=== PATIENT | female | born 1965 | race Caucasian/White ===

== ENCOUNTER → 2020-09-09 | Outpatient (CLI) | payer BC ==
--- NOTE | 2020-09-09 15:44 | CTL ---
EXAMINATION TYPE: CT Low Dose Lung DATE OF EXAM ORDERED: 09/09/2020 HISTORY: Personal history tobacco use. Lung cancer screening CT DLP: 52.[address] CTDI: 1.5 mGy Automated exposure control for dose reduction was used. SCREENING VISIT: 1 COMPARISON: None TECHNIQUE: Low dose computed tomography scan was performed through the chest at 1 mm thick sections a nd reconstructed images in the coronal plane at [address] DIAGNOSTIC QUALITY: Satisfactory FINDINGS: LUNG NODULES: Present, detailed below: Axial image #186 shows a 4.6 mm indeterminate soft tissue nodu le. LUNGS: COPD: Severity: None Fibrosis: Severity: Mild Lymph nodes: None Other findings: There is probable secretions present within the esophagus, difficult to exclude a muc osal abnormality, minimal apical pleural thickening posteriorly and bilaterally RIGHT PLEURAL SPACE: Effusion: None Calcification: None Thickening: None Pneumothorax: None LEFT PLEURAL SPACE: Effusion: None Calcification: None Thickening: None Pneumothorax: None HEART: Heart Size: Small Coronary calcification: Mild Pericardial effusion: None OTHER FINDINGS: Upper abdomen: Unremarkable Bony thorax: Within normal limits Supraclavicular region: No evident adenopathy Other: IMPRESSION: Benign CT LUNG RAD AND CT CHEST RECOMMENDATION: Lung-Rad 2 Benign Appearance or Behavior: Continue annual sc reening with LDCT in 12 months. S Modifier (other clinically significant findings):
== END | disposition home or self-care (01) ==
LOC: RADCTMAIN 11:38
PROVIDERS: ATTEND Family Medicine
DX: Z12.2 Encounter for screening for malignant neoplasm of respiratory organs (principal); F17.210 Nicotine dependence, cigarettes, uncomplicated
CPT/HCPCS: 71271

== ENCOUNTER → 2022-06-02 | Outpatient (CLI) | payer BC ==
--- NOTE | 2022-06-02 15:05 | CTL ---
EXAMINATION TYPE: CT Low Dose Lung DATE OF EXAM ORDERED: 06/02/2022 HISTORY: Long-term tobacco use. Lung cancer screening CT DLP: 58.[address] CTDI: 1.9 mGy Automated exposure control for dose reduction was used. SCREENING VISIT: First step to baseline COMPARISON: Prior study September 09, 2020 TECHNIQUE: Low dose computed tomography scan was performed through the chest at 1 mm thick sections a nd reconstructed images in multiple planes at 1 mm and [address] DIAGNOSTIC QUALITY: Satisfactory FINDINGS: LUNG NODULES: Present, detailed below: Stable 4 to 5 mm lingular nodule on axial image 140. Adjacent tiny nodularity is seen on current study. There is 8 x 7 mm peripheral nodule or more likely nodular scarring in the posterior right upper lobe axial image 17 unchanged from prior study. No new greater than 5 mm pulmonary nodules or masses. LUNGS: COPD: Severity: None Fibrosis: Severity: Mild Lymph nodes: No greater than 1 cm Other findings: None RIGHT PLEURAL SPACE: Effusion: None Calcification: None Thickening: None Pneumothorax: None LEFT PLEURAL SPACE: Effusion: None Calcification: None Thickening: None Pneumothorax: None HEART: Heart Size: Normal Coronary Calcification: None Pericardial Effusion: None OTHER FINDINGS: Upper abdomen: None Bony thorax: Slight scoliotic curvature redemonstrated Supraclavicular region: None Other: None IMPRESSION: No new or enlarging greater than [address] LUNG RAD AND CT CHEST RECOMMENDATION: Lung-Rad 2 Benign Appearance or Behavior: Continue annual sc reening with LDCT in 12 months. S Modifier (other clinically significant findings): None
--- NOTE | 2022-06-03 09:02 | MM ---
Reason for Exam: Screening (asymptomatic). Last mammogram was performed 16 year(s) and 11 month(s) ago. Patient History: Menarche at age 11. Patient has no children. Postmenopausal. Currently using Hormonal Contraceptives, beginning at age 17 for 23 years. Maternal grandmother had breast cancer, age 65. Maternal aunt had breast cancer, age 45. Risk Values: Maegan 5 year model risk: 1.5%. NCI Lifetime model risk: 8.5%. Prior Study Comparison: 06/04/2004 Bilateral Screening Mammogram, [facility]. 06/23/2005 Bilateral Screening Mammogram, [facility]. 07/13/2005 Left Diagnostic Mammogram, [facility]. Tissue Density: The breast tissue is heterogeneously dense. This may lower the sensitivity of mammography. Findings: Analyzed By CAD. There is no suspicious group of microcalcifications or suspicious mass in either breast. Overall Assessment: Benign, BI-RAD 2 Management: Screening Mammogram of both breasts in 1 year. A clinical breast exam by your physician is recommended on an annual basis and results should be correlated with mammographic findings. Electronically signed and approved by: Martin Lauren D.O.
== END | disposition home or self-care (01) ==
LOC: RADCTMAIN 14:03
PROVIDERS: ATTEND Family Medicine
DX: Z12.31 Encounter for screening mammogram for malignant neoplasm of breast (principal); Z12.2 Encounter for screening for malignant neoplasm of respiratory organs; Z87.891 Personal history of nicotine dependence; Z78.0 Asymptomatic menopausal state; Z80.3 Family history of malignant neoplasm of breast
CPT/HCPCS: 71271; 77067